=== PATIENT | female | born 1995 | race Caucasian/White ===

== ENCOUNTER 2016-09-01 23:01 | Outpatient (CLI) | payer OTHER ==
[~2016-09-01] VITALS: Ht 165.1 cm; Wt 102.2 kg
[2016-09-02 00:19] LABS: AMNISURE RESULT NEGATIVE (NEGATIVE)
[2016-09-02] MEDS ORDERED: PRENATAL 1+1)(P1 TAB PO (00:45)
== END 2016-09-02 01:00 | disposition disaster alternative care site (69) ==
LOC: GOBS 23:01 → GOBM 23:01
PROVIDERS: Obstetrics & Gynecology
DX: Z34.83 Encounter for supervision of other normal pregnancy, third trimester (principal); Z3A.35 35 weeks gestation of pregnancy
CPT/HCPCS: G0463

== ENCOUNTER 2016-09-27 06:32 | Inpatient (IN) | payer OTHER ==
[~2016-09-27] VITALS: Ht 165.1 cm; Wt 101.4 kg
--- NOTE | ~2016-09-27 | OR ---
PATIENT'S NAME: NELLIE JOHNS [facility] AGE: 21 Y [address] ROOM: [place] [address] LOCATION: GOBS ADMIT DATE: 09/27/2016 OR/Procedure Report DISCHARGE DATE: FAMILY PHYSICIAN: Robert Ross MD ATTENDING PHYSICIAN: GRANT ORDOÑEZ SURGEON: Grant Ordoñez MD INSPECTOR MULTIFOCAL LENS: DATE OF PROCEDURE: 09/27/2016 PREOPERATIVE DIAGNOSES: 1. Intrauterine at 39 weeks and 0 days. 2. History of gestational hypertension. 3. Elective induction of labor. POSTOPERATIVE DIAGNOSES: 1. Intrauterine at 39 weeks and 0 days. 2. History of gestational hypertension. 3. Elective induction of labor. PROCEDURE PERFORMED: Spontaneous vaginal delivery over intact perineum. ANESTHESIA: Epidural. FINDINGS: Viable male with score of 9 and 9 and weight of 3485 grams. Placenta intact with 3-vessel cord. First-degree perineal laceration. ESTIMATED BLOOD LOSS: 300 mL. COMPLICATIONS: None. INDICATIONS: The patient is a 21-year-old, G2, P1-0-0-1, with intrauterine at 39 weeks and 0 days, who desired elective induction of labor. The patient was admitted. status was reassuring. She is GBS negative. She had Pitocin started for augmentation and had artificial rupture of membranes at 08:15 in the morning. She progressed throughout labor without complications. Her Pitocin was discontinued because she was having tachysystole, but she continued to contract and make cervical change. Therefore, the Pitocin was not restarted. She progressed to complete and started maternal expulsive efforts. DESCRIPTION OF PROCEDURE: The patient was placed in dorsal lithotomy position. She was prepped and draped in the usual fashion. head was delivered with expulsive effort in the TARA position. The anterior shoulder then delivered followed by the remainder of the fetus. The was placed on the mother's abdomen. The cord was clamped after it was no longer PATIENT'S NAME: NELLIE JOHNS [facility] AGE: 21 Y [address] ROOM: [place] [address] LOCATION: [facility] ADMIT DATE: 09/27/2016 OR/Procedure Report DISCHARGE DATE: FAMILY PHYSICIAN: Robert Ross MD ATTENDING PHYSICIAN: GRANT ORDOÑEZ pulsating. It was then cut. Cord blood was obtained. The placenta was then delivered spontaneously intact with a 3-vessel cord. A first-degree laceration was noted and was repaired with 2 interrupted stitches of 3-0 Vicryl. Instrument, sponge, and needle counts were correct at the conclusion of the case. DISPOSITION: Mother stable. Baby in room with mother. MD CLEVE JAY/xenal /[id number] d: 09/27/16 1823 t: 10/04/16 0849, OPERATIVE SUMMARY
[~2016-09-27 06:32] MED LIST: PRENATAL 1+1)(P1 TAB PO
[2016-09-27 07:32] LABS: BASOPHIL % 0.1 %; EOSINOPHIL # 0.1 K/uL (0.0-0.5); EOSINOPHIL % 0.5 %; HEMATOCRIT 36.1 % (33.0-46.0); IMMATURE GRANULOCYTE % 0.4 %; LYMPHOCYTE % 21.3 %; MCH 29.3 pg (27.0-34.0); MCHC 33.2 gm/dL (32.0-36.5); MCV 88.3 fl (83.0-98.0); MONOCYTE # 0.5 K/uL (0.0-1.0); MONOCYTE % 4.8 %; MPV 11.4 fl (9.4-12.4); NEUTROPHIL # (ANC) 6.8 K/uL (1.8-7.8); NEUTROPHIL % 72.9 %; NRBC % 0 /100WBC (0-0.00); PLATELET COUNT 179 K/uL (150-450); RBC 4.09 M/uL (3.50-5.00); RDW-CV 13.6 % (11.9-14.6); WBC 9.3 K/uL (4.0-11.0)
--- NOTE | 2016-09-27 16:53 | NUR ---
Last VS: T:98.4 P:90 R: 16 BP: 122/69 Pain rating: . Last pain med: None given Medicated at: Effective: Yes Breasts: SOFT, Nipples: NO PROBLEM Fundus: FIRM, MIDLINE, Lochia: MODERATE, RUBRA Epis/Perineum: 1ST DEGREE LACERATION Voiding well: MERCER CATH Significant event: *.
--- NOTE | 2016-09-28 04:51 | NUR ---
VSS. FUNDUS FIRM, EVEN 1 DOWN. SMALL FLOW. 2 PERCOCET LAST AT 0025, MOTRIN LAST AT 1927. PLANNING ON GOING HOME TODAY.
[2016-09-28 07:01] LABS: BASOPHIL % 0.1 %; EOSINOPHIL # 0.1 K/uL (0.0-0.5); EOSINOPHIL % 0.6 %; HEMOGLOBIN 11.3 g/dL (11.0-15.0); IMMATURE GRANULOCYTE % 0.5 %; LYMPHOCYTE # 2.2 K/uL (0.8-4.0); LYMPHOCYTE % 26.1 %; MCH 30.1 pg (27.0-34.0); MCHC 33.2 gm/dL (32.0-36.5); MCV 90.4 fl (83.0-98.0); MONOCYTE # 0.5 K/uL (0.0-1.0); MONOCYTE % 5.7 %; MPV 11.1 fl (9.4-12.4); NEUTROPHIL # (ANC) 5.7 K/uL (1.8-7.8); NRBC % 0 /100WBC (0-0.00); PLATELET COUNT 158 K/uL (150-450); RBC 3.76 M/uL (3.50-5.00); RDW-CV 13.7 % (11.9-14.6); WBC 8.5 K/uL (4.0-11.0)
--- NOTE | 2016-09-28 17:52 | NUR ---
Last VS: T:98.0 P:84 R: 16 BP: 115/57 Pain rating: . Last pain med: MOTRIN AT 0841 Medicated at: Effective: Breasts: , Nipples: FLAT, USES SHIELD RT SOME Fundus:, , WNL Lochia: , WNL Epis/Perineum: APPROX, , Voiding well: YES Significant event: .UP AD LISA. PLANS TUB TONIGHT. TEARFUL STAYING TONIGHT.
--- NOTE | 2016-09-29 04:51 | NUR ---
VSS, FUNDUS WNL, PT UP AD LISA AND INDEPENDENT. NIPPLES FLAT. NEEDS ASSISTANCE AT TIMES. HOME TODAY. SOME PAPERWORK ALREADY DONE.
[2016-09-29] MEDS ORDERED: PERCOCET 5-3251 EACH PO (10:32)
== END 2016-09-29 11:00 | disposition disaster alternative care site (69) | DRG 775 ==
LOC: GOBM 06:32 → GOBS 06:32 → GOBM 06:33 → GOBS 06:33
PROVIDERS: ADMIT Obstetrics & Gynecology
DX: O70.0 First degree perineal laceration during delivery (principal); Z37.0 Single live birth; Z3A.39 39 weeks gestation of pregnancy
CPT/HCPCS: J2001; J2590; J3010; J7120